=== PATIENT | female | born 1965 | race Caucasian/White ===

== ENCOUNTER → 2017-04-05 | Day surgery (SDC) | payer BC ==
--- NOTE | 2017-04-06 15:33 | PATH ---
Surgical Pathology Report Patient Name: ISAIAH YEAGER [facility]. Rec. #: [id number] /Age/Gender: 1965 (Age: 51) / F Account: [id number] Location: Taken: 04/05/2017 Received: 04/05/2017 Reported: 04/06/2017 Physicians: Denisse Jean M.D. Specimen(s) Received RIGHT BREAST CORE BIOPSY 12:00, 7CM FN Clinical History Ultrasound findings: Suspicious Final Diagnosis BREAST, RIGHT, 12:00, 7 CM FN, CORE BIOPSY: BENIGN BREAST TISSUE SHOWING FIBROADENOMA. Electronically Signed Grisel Fernandez M.D. Gross Description Received in formalin labeled "right breast biopsy 12:00, 7 cmfn," is a 1.1 x 1.1 x 0.2 cm aggregate of multiple joshua-yellow, irregular to cylindrical portions of fibroadipose tissue. The formalin is filtered and the specimen is entirely submitted in one cassette. Time to formalin fixation: 2 minutes Total formalin fixation time: Approximately 6 hours. 04/05/2017 [facility]04/05/2017
== END | disposition home or self-care (01) ==
LOC: FRADUS-SUR 12:26
PROVIDERS: ATTEND Internal Medicine
PROC: 0HBT3ZX Excision of Right Breast, Percutaneous Approach, Diagnostic (ICD-10-PCS; principal; 2017-04-05)
DX: D24.1 Benign neoplasm of right breast (principal)
CPT/HCPCS: 19083; 87899; 88305-TC; A4648; G0206-TC

== ENCOUNTER 2021-10-14 09:13 | Emergency (ER) | payer BC ==
[2021-10-14 09:24] VITALS: BMI 27.4
[2021-10-14] MEDS ORDERED: ONDANSETRON 4 MG/2 ML VIAL ONE (09:43)
[2021-10-14] MEDS ORDERED: METOCLOPRAMIDE HCL INJECTION 10 MG/2 ML VIAL IVPUSH ONE (09:44)
[2021-10-14] MEDS ORDERED: SODIUM CHLORIDE 0.9% 500 ML INFUS.BAG IV ONE (09:44)
[2021-10-14] MEDS ORDERED: ACETAMINOPHEN 1000 MG/100 ML BAG IVPB ONE (09:45)
[2021-10-14] MEDS ORDERED: ONDANSETRON 4 MG/2 ML VIAL IVPUSH ONE (09:47)
[2021-10-14 10:01] LABS: BASO % 0.6 % (0-2.0); HEMATOCRIT 39.2 % (32.4-45.2); HEMOGLOBIN 13.2 GM/dL (10.7-15.3); MCH 28.6 pg (25.7-33.7); MCHC 33.7 g/dl (32.0-36.0); MEAN CELL VOLUME 84.7 fl (80-96); MEAN PLT VOLUME 8.9 fl (7.5-11.1); MONO % 5.9 % (3.8-10.2); NEUT % 63.5 % (42.8-82.8); PLATELET COUNT 216 10^3/uL (134-434); RBC 4.62 M/mm3 (3.60-5.2); RDW 13.1 % (11.6-15.6); WHITE BLOOD COUNT 7.6 K/mm3 (4.0-10.0)
[2021-10-14 10:19] LABS: CALCIUM 9.4 mg/dL (8.5-10.1)
[2021-10-14 10:22] LABS: CREATININE 0.8 mg/dL (0.55-1.3)
[2021-10-14] MEDS ORDERED: METOCLOPRAMIDE HCL INJECTION 10 MG/2 ML VIAL IVPB ONE (10:23)
[2021-10-14 10:24] LABS: BILIRUBIN,TOTAL 1.1 mg/dL (0.2-1); TOT PROT 7.6 g/dl (6.4-8.2)
[2021-10-14] MEDS ORDERED: METOCLOPRAMIDE HCL INJECTION 10 MG/2 ML VIAL ONE (11:12)
[2021-10-14] MEDS ORDERED: morphine SULFATE 4 MG/ML VIAL ONE (11:22)
[2021-10-14] MEDS ORDERED: levETIRAcetam 500 MG/5 ML INJECTION VIAL IVPB ONE ×2 (11:32→12:06)
[2021-10-14] MEDS ORDERED: morphine CARPU-JECT 4 MG/1 ML DISP.SYRIN IVPUSH ONE (11:48)
[2021-10-14 13:07] VITALS: BP 98/83; PULSE 63; TEMP 98.7
== END 2021-10-14 12:20 | disposition short-term general hospital (02) ==
LOC: JER 09:13
PROC: 3E033GC Introduction of Other Therapeutic Substance into Peripheral Vein, Percutaneous Approach (ICD-10-PCS; principal; 2021-10-14)
DX: I60.9 Nontraumatic subarachnoid hemorrhage, unspecified (principal)
CPT/HCPCS: 36415; 70450-TC; 71045-TC-FY; 80053; 83690; 83735; 84484; 84703; 85025; 93005; 93010; 99291; 99292